=== PATIENT | male | born 1990 | race Caucasian/White ===

== ENCOUNTER 2024-09-30 06:56 | Emergency (ER) | payer OTHER, SELFPAY ==
--- NOTE | ~2024-09-30 | CT_ITS ---
EXAMINATION: CT ABDOMEN AND PELVIS WITH CONTRAST CLINICAL INFORMATION: Abdominal pain unspecified. COMPARISON: None available. TECHNIQUE: Multidetector volumetric images were obtained from the superior aspect of the liver through the pubic symphysis following administration 85 mL of Omnipaque 350 intravenous contrast. Sagittal and coronal reformatted images were obtained on the technologist's workstation. Oral contrast: No This CT examination was performed using dose optimization techniques as appropriate, variously including the following: *Automated exposure control *Adjustment of mA and/or kV according to patient size (this includes techniques or standardized protocols for targeted exams where dose is matched to indication/reason for exam; i.e. extremities or head) *Use of iterative reconstruction technique FINDINGS: LUNG BASES: Patchy groundglass opacities in the left lower lobe centrally, highly suspicious for pneumonia. No effusions. Right lung clear. Heart size normal. No pericardial effusion. No esophageal abnormalities. LIVER, GALLBLADDER, AND BILIARY TREE: There is mild hepatomegaly. There is diffuse fatty infiltration of the liver with focal fatty sparing. No suspicious intrinsic lesion. Smooth contour. No intra or extrahepatic biliary dilatation. The gallbladder is unremarkable with no evidence of radiopaque gallstones, gallbladder wall thickening, or obvious pericholecystic inflammatory changes. PANCREAS: Unremarkable. SPLEEN: Borderline splenomegaly. Small posterior splenule. ADRENAL GLANDS: Unremarkable. KIDNEYS AND URETERS: The kidneys are normal in size, shape, and attenuation. No hydronephrosis, hydroureter, or calculi seen. No perinephric stranding. There is a 1.4 cm midpole left renal cyst. BLADDER: Unremarkable. GASTROINTESTINAL TRACT: There are rare colonic diverticula. The small and large bowel are otherwise unremarkable. The appendix is unremarkable. The stomach is decompressed. The duodenum appears normal. No rectal abnormality. PERITONEUM/RETROPERITONEUM: No free air or ascites. ABDOMINAL WALL: No significant hernia is appreciated. LYMPH NODES: Nonenlarged by size criteria. VASCULAR: Unremarkable. PELVIC VISCERA: The prostate and seminal vesicles are unremarkable. OSSEOUS STRUCTURES: No suspicious lytic or blastic bone lesions. Mild degenerative changes of the hip joints with over coverage of the posterior acetabula, findings which can represent CAYETANO, pincer type. There is a bone island in the right intertrochanteric region. Mild degenerative arthrosis in the spine with short pedicle syndrome. CT/CT abdomen pelvis w IV con IMPRESSION: 1. Pneumonia left lower lobe. No effusions. 2. Mild hepatomegaly with diffuse fatty infiltration. No suspicious lesion. 3. Borderline splenic enlargement. 4. Minimal colonic diverticulosis without evidence of inflammation. 5. Additional ancillary findings as discussed in the body of the report. Electronically signed by: Cliff Taylor MD 09/30/2024 09:15 AM EDT
--- NOTE | ~2024-09-30 | US_ITS ---
EXAMINATION: US ABDOMEN LIMITED CLINICAL INFORMATION: Right upper quadrant evaluation, abdominal pain, nausea and vomiting, diarrhea.. COMPARISON: Postcontrast CT abdomen and pelvis dated earlier same day. TECHNIQUE: Real-time imaging of the right upper quadrant abdominal viscera. FINDINGS: Per technologist note, limited exam due to extensive overlying bowel gas. PANCREAS: Visualized portions are unremarkable. Tail obscured by gas. LIVER: Liver is mildly enlarged. The right hepatic lobe measures 17.3 cm. The liver contour is normal. Diffusely increased parenchymal echogenicity is present. Focal fatty sparing abutting the gallbladder fossa. No focal hepatic lesion. There is no intrahepatic biliary duct dilatation seen. GALLBLADDER: The gallbladder is physiologically distended without evidence of stones, sludge, polyps, wall thickening or pericholecystic fluid. Negative sonographic Hubbard's sign. COMMON BILE DUCT: Normal in caliber measuring 0.3 cm in diameter. RIGHT KIDNEY: No hydronephrosis. No renal calculi or focal parenchymal lesions. The kidney measures 11.9 cm in maximum dimension. FREE FLUID: None. US/US abdomen limited IMPRESSION: 1. Mild hepatomegaly with mild diffuse fatty infiltration of the liver. 2. Normal gallbladder and bile ducts. 3. Normal right kidney. Electronically signed by: Cliff Taylor MD 09/30/2024 12:07 PM EDT
--- NOTE | ~2024-09-30 | CT_ITS ---
EXAMINATION: CT CHEST ANGIOGRAPHY WITH IV CONTRAST INDICATION: diffuse pain COMPARISON: There are no prior studies available for comparison. TECHNIQUE: Helical CT scan of the chest was performed following administration of intravenous contrast (65 mL Omnipaque 350). The contrast bolus was timed to optimally opacify the pulmonary arteries. Thin sections were obtained through the pulmonary arteries. Coronal and sagittal reformatted images were generated. 3D/MIP reconstructed images are also obtained and reviewed. This CT exam was performed with one or more of the following dose reduction techniques: automated exposure control, adjustment of the mA and/or kV according to patient size, use of iterative reconstruction technique. DLP: 304 mGy-cm CHEST: THYROID: The thyroid gland is unremarkable. PULMONARY ARTERIES: No intraluminal filling defects are identified within the pulmonary arteries to suggest pulmonary emboli. LUNGS: There are multifocal patchy airspace opacities in both upper lobes, consistent with pneumonia. MEDIASTINUM: There is no mediastinal lymphadenopathy. DENNIS: There is no hilar lymphadenopathy. CARDIOVASCULATURE: The heart is normal in size. There is no pericardial effusion. The thoracic aorta is normal in caliber. DEGREE OF CORONARY CALCIFICATION: none PLEURA: There is no pleural effusion. No pneumothorax. MAIN AIRWAYS: The mainstem bronchi and proximal branches are patent. AXILLA: There is no axillary lymphadenopathy. UPPER ABDOMEN: The visualized portion of the liver is enlarged and demonstrates diffusely decreased attenuation, consistent with steatosis. The visualized portions of the spleen and adrenals are unremarkable. BONES AND SOFT TISSUES: There is mild degenerative disc disease of the spine. CT/CT angio chest PE protocol IMPRESSION: 1. No evidence of pulmonary emboli. 2. Bilateral upper lobe pneumonia. 3. Hepatomegaly and hepatic steatosis. Electronically signed by: Vinh Szymanski MD 09/30/2024 11:12 AM EDT
[2024-09-30 07:15] VITALS: BP 112/66; PULSE 113; RESP 18; TEMP 37.1; O2SAT 98; BMI 36.6
[2024-09-30 07:33] LABS: MANUAL DIFF FLAG NO
[2024-09-30 07:36] LABS: Basophils Absolute Auto 0.1 X10*3/uL (0.0-0.2); Basophils Percent Auto 0.4 % (0-2); Eosinophils Absolute Auto 0.2 X10*3/uL (0.0-0.4); Eosinophils Percent Auto 1.2 % (0-4); Hematocrit 46.6 % (42.0-52.0); Hemoglobin 16.2 g/dl (14.0-18.0); Imm Gran Abs Auto 0.06 X10*3/uL (0.00-0.03); Imm Gran Pct Auto 0.4 % (0.0-0.4); Lymphocytes Absolute Auto 1.2 X10*3/uL (1.2-4.9); Lymphocytes Percent Auto 8.3 % (20-40); Mean Corpuscular HGB Conc 34.8 g/dl (31.0-36.0); Mean Corpuscular Hemoglobin 28.1 pg (27.0-33.0); Mean Corpuscular Volume 80.8 fL (80.0-98.0); Mean Platelet Volume 9.8 fL (9.4-12.4); Monocytes Absolute Auto 0.9 X10*3/uL (0.1-1.2); Monocytes Percent Auto 6.3 % (2-11); Neutrophils Absolute Auto 12.3 x10*3/uL (2.0-8.3); Neutrophils Percent Auto 83.4 % (45-73); Platelet Count 229 X10*3/uL (160-400); Red Blood Count 5.77 X10*6/uL (4.60-5.80); Red Cell Distribution Width 12.4 % (11.0-16.0); White Blood Count 14.7 X10*3/uL (4.8-10.8)
--- NOTE | 2024-09-30 07:41 | ED.GENADULT ---
HPI - General Adult General Chief complaint: Abdominal Pain Stated complaint: n/v/d Time Seen by Provider: 09/30/24 07:16 History of Present Illness ED Provider: Dr. Donnelly HPI narrative: 34 y/o M patient; without significant PMH; presents from home reporting NBNB nausea/vomiting and non-bloody diarrhea since this morning. Associated with chills. The patient was initially going to try to go to work this morning but decided to present to the hospital for further evaluation due to the severity of his symptoms. He otherwise denies: fever or chills, SOB, cough/congestion, chest pain, syncope. He denies prior abdominal surgeries. Related Data Previous Rx's ?Medication ?Instructions ?Recorded amoxicillin 875 mg-potassium 1 tab PO BID 7 days #14 tabs 09/30/24 clavulanate 125 mg tablet azithromycin 250 mg tablet 250 mg PO DAILY 4 days #4 tabs 09/30/24 ondansetron HCl 4 mg tablet 4 mg PO Q8H PRN nausea and 09/30/24 vomiting #30 tabs Allergies Allergy/AdvReac Type Severity Reaction Status Date / Time seafood Allergy Intermediate Swelling Verified 09/30/24 07:20 Review of Systems Review of Systems: Yes all other systems are reviewed and are negative [facility] Past Medical History Attestation statement: The following information was validated with the patient. Source: unable to obtain Social History Social History Smoked in Last 30 Days: No Use of substances other than those prescribed or required for medical reasons: No Advance Directives: No Advance Directives Information Provided: No Do you have a plan to hurt others: No Plan Physical Exam ED Vital Signs: Vital Signs - 24 hr 09/30/24 07:15 Temperature 98.7 F Pulse Rate 113 H Respiratory Rate 18 Blood Pressure 112/66 Pulse Oximetry 98 Oxygen Delivery Method Room Air BMI result Body Mass Index 36.6 Patient is afebrile, tachycardic, hemodynamically stable Const General: cooperative HENMT Head: Yes normal to inspection and Yes atraumatic Eyes General: appearance normal, both eyes and all related structures Pupils: Equal, round and reactive pupils present EOM: EOMs intact bilaterally Neck Neck: Yes normal visual inspection, Yes full ROM, Yes supple and No tender Chest Chest palpation & inspection: normal inspection of the chest and normal palpation of entire chest wall Resp Effort & Inspection: normal respiratory effort, able to speak in complete sentences, no cough and no respiratory distress Auscultation: clear to auscultation bilaterally Cardio Rate: regular rate Rhythm: regular rhythm Peripheral pulses: Peripheral pulses 2+ throughout GI Inspection: Yes normal to inspection, No Abdominal wall edema and No distended Palpation (GI): Soft to palpation, not firm, nontender, no guarding and not rigid Auscultation: normal bowel sounds Back/Spine/Pelvis Back: No back tenderness Neuro Cranial nerves: Yes Equal, round and reactive pupils present Course Course Course Narrative: Patient is afebrile, tachycardic, hemodynamically stable. Ordered for respiratory swab and abdominal laboratory studies. Reevaluation(s) Reevaluation #1: Labs reviewed. Mild leukocytosis 14.7. Unremarkable BMP for acute pathology. Total bilirubin 2.2. Mild transaminitis. No prior laboratory studies for comparison. Provided Tylenol PO but patient declined. Ordered for CT Abdomen/Pelvis. Notable for LLL pneumonia. Ordered for CTA Chest. Offer toradol IV 15mg and Zofran 4mg IV. CTA consistent with patchy upper lobe pneumonia. Ordered for blood cultures and lactic acid. Started on Azithromycin and Augmentin. US notable only for hepatic steatosis. Patient is ambulating without difficulty or hypoxia. Plan: Discharge to home with PCP follow up Return precautions given Rx Azithromycin, augmentin, zofran sent to pharmacy Medications Administered Discontinued Medications Generic Name Dose Route Start Last Admin Trade Name Freq PRN Reason Stop Dose Admin Acetaminophen 975 mg 09/30/24 07:51 09/30/24 08:06 Acetaminophen 325 Mg Tablet PO 09/30/24 07:52 Not Given ONCE ONE Amoxicillin/Clavulanate Potassium 875 mg 09/30/24 11:48 09/30/24 11:53 Amoxicillin/Potassium Clav 875 Mg Tablet PO 09/30/24 11:49 875 mg ONCE ONE Administration Azithromycin 500 mg 09/30/24 11:48 09/30/24 11:52 Azithromycin 500 Mg Tablet PO 09/30/24 11:49 500 mg ONCE ONE Administration Sodium Chloride 1,000 mls @ 999 mls/hr 09/30/24 09:45 09/30/24 10:46 Ns IV 09/30/24 10:45 Infused .Q1H1M NANCY Infusion Iohexol 100 ml 09/30/24 08:55 09/30/24 08:56 Iohexol 350 Mg/Ml 100 Ml Infus..Btl IV 09/30/24 08:56 85 ml ONCE ONE Administration Iohexol 100 ml 09/30/24 10:49 09/30/24 10:50 Iohexol 350 Mg/Ml 100 Ml Infus..Btl IV 09/30/24 10:50 65 ml ONCE ONE Administration Ketorolac Tromethamine 15 mg 09/30/24 09:37 09/30/24 09:41 Ketorolac Tromethamine 15 Mg/Ml Vial IVPUSH 09/30/24 09:38 15 mg ONCE ONE Administration Ondansetron HCl 4 mg 09/30/24 09:38 09/30/24 09:41 Ondansetron Hcl 4 Mg/2 Ml Vial IVPUSH 09/30/24 09:39 4 mg ONCE ONE Administration Medical Decision Making Lab Data 09/30/24 07:27 09/30/24 07:27 Labs: Lab Results 09/30/24 09/30/24 Range/Units 07:27 12:11 WBC 14.7 H (4.8-10.8) X10*3/uL RBC 5.77 (4.60-5.80) X10*6/uL Hgb 16.2 (14.0-18.0) g/dl Hct 46.6 (42.0-52.0) % MCV 80.8 (80.0-98.0) fL MCH 28.1 (27.0-33.0) pg MCHC 34.8 (31.0-36.0) g/dl RDW 12.4 (11.0-16.0) % Plt Count 229 (160-400) X10*3/uL MPV 9.8 (9.4-12.4) fL Immature Gran % (Auto) 0.4 (0.0-0.4) % Neut % (Auto) 83.4 H (45-73) % Lymph % (Auto) 8.3 L (20-40) % Fillmore % (Auto) 6.3 (2-11) % Eos % (Auto) 1.2 (0-4) % Baso % (Auto) 0.4 (0-2) % Lymph # (Auto) 1.2 (1.2-4.9) X10*3/uL [place] # (Auto) 0.9 (0.1-1.2) X10*3/uL Eos # (Auto) 0.2 (0.0-0.4) X10*3/uL Baso # (Auto) 0.1 (0.0-0.2) X10*3/uL Abs Immat Gran (auto) 0.06 H (0.00-0.03) X10*3/uL Absolute Neuts (auto) 12.3 H (2.0-8.3) x10*3/uL Absolute Nucleated RBC 0.000 (0.0-0.012) X10*3/uL Nucleated RBC % (auto) 0.0 (0.0-0.2) /100WBC Sodium 140 (135-145) mmol/L Potassium 3.8 (3.3-5.1) mmol/L Chloride 105 (96-108) mmol/L Carbon Dioxide 28 (22-29) mmol/L Anion Gap 11 L (12-20) BUN 12 (9-16) mg/dL Creatinine 1.02 (0.5-1.4) mg/dL Estim Creat Clear Calc 108.7 Estimated GFR > 60 Random Glucose 151 H (60-115) mg/dL Lactic Acid 1.1 (0.5-2.0) mmol/L Calcium 9.7 (8.4-10.2) mg/dL Total Bilirubin 2.2 H (0.0-1.0) mg/dL Direct Bilirubin 0.6 H (0.0-0.5) mg/dL AST 72 H (5-37) U/L ALT 139 H (0-40) U/L Alkaline Phosphatase 118 H (39-117) U/L Total Protein 8.4 H (6.5-8.0) g/dL Albumin 4.5 (3.5-5.0) g/dL Lipase 13 (8-78) U/L Ethyl Alcohol < 10 mg/dL Influenza Type A (PCR) NEGATIVE (Negative) Influenza Type B (PCR) NEGATIVE (Negative) RSV RNA Qual (PCR) NEGATIVE (Negative) SARS-CoV-2 RNA (RT-PCR) NEGATIVE (Negative) Independent Interpretation I performed an independent interpretation of an: EKG Interpretation: NSR 93BPM with normal intervals, without ischemic changes Radiology Impression Discussion of test interpretation with radiology: I have reviewed the radiologist's reading. Radiologist Impression: EXAMINATION: CT ABDOMEN AND PELVIS WITH CONTRAST CLINICAL INFORMATION: Abdominal pain unspecified. COMPARISON: None available. TECHNIQUE: Multidetector volumetric images were obtained from the superior aspect of the liver through the pubic symphysis following administration 85 mL of Omnipaque 350 intravenous contrast. Sagittal and coronal reformatted images were obtained on the technologist's workstation. Oral contrast: No This CT examination was performed using dose optimization techniques as appropriate, variously including the following: *Automated exposure control *Adjustment of mA and/or kV according to patient size (this includes techniques or standardized protocols for targeted exams where dose is matched to indication/reason for exam; i.e. extremities or head) *Use of iterative reconstruction technique FINDINGS: LUNG BASES: Patchy groundglass opacities in the left lower lobe centrally, highly suspicious for pneumonia. No effusions. Right lung clear. Heart size normal. No pericardial effusion. No esophageal abnormalities. LIVER, GALLBLADDER, AND BILIARY TREE: There is mild hepatomegaly. There is diffuse fatty infiltration of the liver with focal fatty sparing. No suspicious intrinsic lesion. Smooth contour. No intra or extrahepatic biliary dilatation. The gallbladder is unremarkable with no evidence of radiopaque gallstones, gallbladder wall thickening, or obvious pericholecystic inflammatory changes. PANCREAS: Unremarkable. SPLEEN: Borderline splenomegaly. Small posterior splenule. ADRENAL GLANDS: Unremarkable. KIDNEYS AND URETERS: The kidneys are normal in size, shape, and attenuation. No hydronephrosis, hydroureter, or calculi seen. No perinephric stranding. There is a 1.4 cm midpole left renal cyst. BLADDER: Unremarkable. GASTROINTESTINAL TRACT: There are rare colonic diverticula. The small and large bowel are otherwise unremarkable. The appendix is unremarkable. The stomach is decompressed. The duodenum appears normal. No rectal abnormality. PERITONEUM/RETROPERITONEUM: No free air or ascites. ABDOMINAL WALL: No significant hernia is appreciated. LYMPH NODES: Nonenlarged by size criteria. VASCULAR: Unremarkable. PELVIC VISCERA: The prostate and seminal vesicles are unremarkable. OSSEOUS STRUCTURES: No suspicious lytic or blastic bone lesions. Mild degenerative changes of the hip joints with over coverage of the posterior acetabula, findings which can represent CAYETANO, pincer type. There is a bone island in the right intertrochanteric region. Mild degenerative arthrosis in the spine with short pedicle syndrome. CT/CT abdomen pelvis w IV con IMPRESSION: 1. Pneumonia left lower lobe. No effusions. 2. Mild hepatomegaly with diffuse fatty infiltration. No suspicious lesion. 3. Borderline splenic enlargement. 4. Minimal colonic diverticulosis without evidence of inflammation. 5. Additional ancillary findings as discussed in the body of the report. Electronically signed by: Cliff Taylor MD 09/30/2024 09:15 AM EDT RP EXAMINATION: CT CHEST ANGIOGRAPHY WITH IV CONTRAST INDICATION: diffuse pain COMPARISON: There are no prior studies available for comparison. TECHNIQUE: Helical CT scan of the chest was performed following administration of intravenous contrast (65 mL Omnipaque 350). The contrast bolus was timed to optimally opacify the pulmonary arteries. Thin sections were obtained through the pulmonary arteries. Coronal and sagittal reformatted images were generated. 3D/MIP reconstructed images are also obtained and reviewed. This CT exam was performed with one or more of the following dose reduction techniques: automated exposure control, adjustment of the mA and/or kV according to patient size, use of iterative reconstruction technique. DLP: 304 mGy-cm CHEST: THYROID: The thyroid gland is unremarkable. PULMONARY ARTERIES: No intraluminal filling defects are identified within the pulmonary arteries to suggest pulmonary emboli. LUNGS: There are multifocal patchy airspace opacities in both upper lobes, consistent with pneumonia. MEDIASTINUM: There is no mediastinal lymphadenopathy. DENNIS: There is no hilar lymphadenopathy. CARDIOVASCULATURE: The heart is normal in size. There is no pericardial effusion. The thoracic aorta is normal in caliber. DEGREE OF CORONARY CALCIFICATION: none PLEURA: There is no pleural effusion. No pneumothorax. MAIN AIRWAYS: The mainstem bronchi and proximal branches are patent. AXILLA: There is no axillary lymphadenopathy. UPPER ABDOMEN: The visualized portion of the liver is enlarged and demonstrates diffusely decreased attenuation, consistent with steatosis. The visualized portions of the spleen and adrenals are unremarkable. BONES AND SOFT TISSUES: There is mild degenerative disc disease of the spine. CT/CT angio chest PE protocol IMPRESSION: 1. No evidence of pulmonary emboli. 2. Bilateral upper lobe pneumonia. 3. Hepatomegaly and hepatic steatosis. Electronically signed by: Vinh Szymanski MD 09/30/2024 11:12 AM EDT EXAMINATION: US ABDOMEN LIMITED CLINICAL INFORMATION: Right upper quadrant evaluation, abdominal pain, nausea and vomiting, diarrhea.. COMPARISON: Postcontrast CT abdomen and pelvis dated earlier same day. TECHNIQUE: Real-time imaging of the right upper quadrant abdominal viscera. FINDINGS: Per technologist note, limited exam due to extensive overlying bowel gas. PANCREAS: Visualized portions are unremarkable. Tail obscured by gas. LIVER: Liver is mildly enlarged. The right hepatic lobe measures 17.3 cm. The liver contour is normal. Diffusely increased parenchymal echogenicity is present. Focal fatty sparing abutting the gallbladder fossa. No focal hepatic lesion. There is no intrahepatic biliary duct dilatation seen. GALLBLADDER: The gallbladder is physiologically distended without evidence of stones, sludge, polyps, wall thickening or pericholecystic fluid. Negative sonographic Hubbard's sign. COMMON BILE DUCT: Normal in caliber measuring 0.3 cm in diameter. RIGHT KIDNEY: No hydronephrosis. No renal calculi or focal parenchymal lesions. The kidney measures 11.9 cm in maximum dimension. FREE FLUID: None. US/US abdomen limited IMPRESSION: 1. Mild hepatomegaly with mild diffuse fatty infiltration of the liver. 2. Normal gallbladder and bile ducts. 3. Normal right kidney. Electronically signed by: Cliff Taylor MD 09/30/2024 12:07 PM EDT Discharge Plan Discharge Clinical Impression: Pneumonia Patient Disposition: Home, Self-Care Instructions: Community Acquired Pneumonia (DC) Additional Instructions: You were seen in the emergency department today and diagnosed with pneumonia. You should take the Augmentin (Amoxicillin-Clavulonic Acid medication) tonight and then twice a day for the next 7 days. You should take the Azithromycin once a day starting tomorrow for 4 days. I have also sent a nausea medication called Zofran to the pharmacy which you can take every 8 hours as needed for nausea/vomiting. Please follow up with your primary doctor for re-evaluation within the next 1 - 2 days. Return to the emergency department for: Difficulty breathing Chest pain Passing out Prescriptions: New amoxicillin-pot clavulanate 875-125 mg tablet 1 tab PO BID 7 Days Qty: 14 0RF ondansetron HCl 4 mg tablet 4 mg PO Q8H PRN (Reason: nausea and vomiting) Qty: 30 0RF azithromycin 250 mg tablet 250 mg PO DAILY 4 Days Qty: 4 0RF Rx Instructions: start on day 2 of therapy Print Language: Italian
[2024-09-30 07:48] LABS: Anion Gap 11 (12-20); Blood Urea Nitrogen 12 mg/dL (9-16); Calcium 9.7 mg/dL (8.4-10.2); Carbon Dioxide 28 mmol/L (22-29); Chloride 105 mmol/L (96-108); Creatinine Clr Calc Pharmacy 108.7; Estimated Glomerular Filt Rate > 60; Glucose Random 151 mg/dL (60-115); Potassium 3.8 mmol/L (3.3-5.1); Sodium 140 mmol/L (135-145)
--- OUTSIDE RECORDS SUMMARY | 2024-09-30 07:48 | XMS_ITS | Clinical Summary ---
Author Organization [facility] it Address [address] [place] [address] Care Team Providers Care Detasseler Name Role Phone Unavailable Primary Care Provider Unavailabl e Social History Tobacco Use Types Packs/Day Years Used Date Smoking Tobacco: Never Assessed Sex and Gender Information Value Date Recorded Sex Assigned at Not on file Legal Sex Male 4:36 AM EST Gender Identity Not on file Sexual Orientation Not on file Plan of Treatment Health Maintenance Due Date Last Done Comments DTaP,Tdap,and Td Vaccines (1 - Tdap) 2007 Hepatitis B Vaccines (1 of 3 - 19+ 3-dose series) 2007 Cholesterol Screening (Lipid Panel) 02/10/2024 Depression Screening 02/10/2024 HIV Screening 02/10/2024 Hepatitis C Screening 02/10/2024 Social Influencers of Health Screening 02/10/2024 COVID-19 Vaccine ( - 2023-2 5 season) 2024 Influenza Vaccine (#1) 2024 HIB Vaccines Aged Out No longer eligi ble based on patient's age to complete this topic HPV Vaccines Aged Out No longer eligi ble based on patient's age to complete this topic Hepatitis A Vaccines Aged Out No long er eligible based on patient's age to complete this topic IPV Vaccines Aged Out No longer eligi ble based on patient's age to complete this topic MMR Vaccines Aged Out No longer eligi ble based on patient's age to complete this topic Meningococcal ACWY Vaccine Aged Out N o longer eligible based on patient's age to complete this topic Meningococcal B Vacine Aged Out No lo nger eligible based on patient's age to complete this topic Pneumococcal Vaccine: Pediat rics (0 to 5 Years) and At-Risk Patients (6 to 64 Years) Aged Out No longer eligible b ased on patient's age to complete this topic RSV Immunization Patients Un nisha 20 months Aged Out No longer eligible b ased on patient's age to complete this topic Varicella Vaccines Aged Out No longer eligible based on patient's age to complete this topic Advance Directives Documents on File Type Date 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
--- NOTE | 2024-09-30 08:06 | PC.NURSE ---
Patient a&ox3,iv inserted, labs drawn, nasal swab obtained, vss, pt c/o 04/29 abd pain, pt was offered tylenol per orders pt refused/crying stating his pain is too much for tylenol. will notify provider.
[2024-09-30 08:13] LABS: Influenza A PCR NEGATIVE (Negative); Influenza B PCR NEGATIVE (Negative); Resp Syncy Virus RNA Qual PCR NEGATIVE (Negative); SARS COV2 PCR INHOUSE NEGATIVE (Negative)
[2024-09-30 08:43] LABS: Alanine Aminotransferase 139 U/L (0-40); Albumin Level 4.5 g/dL (3.5-5.0); Alkaline Phosphatase 118 U/L (39-117); Aspartate Amino Transferase 72 U/L (5-37); Bilirubin Direct 0.6 mg/dL (0.0-0.5); Bilirubin Total 2.2 mg/dL (0.0-1.0); Ethanol < 10 mg/dL; Lipase 13 U/L (8-78); Total Protein 8.4 g/dL (6.5-8.0)
[2024-09-30] MEDS: iohexoL 350 MG/ML 100 ML INFUS..BTL IV ×2 (08:56→10:50)
[2024-09-30] MEDS: Ketorolac Tromethamine 15 MG/ML VIAL IVPUSH (09:41)
[2024-09-30] MEDS: ondansetron HCL 4 MG/2 ML VIAL IVPUSH (09:41)
[2024-09-30] MEDS: 0.9 % Sodium Chloride 1,000 ML 999 ML IV (09:45)
[2024-09-30] MEDS: Azithromycin 500 MG TABLET PO (11:52)
[2024-09-30] MEDS: Amoxicillin/Potassium Clav 875 MG TABLET PO (11:53)
--- NOTE | 2024-09-30 11:53 | PC.NURSE ---
pt medicated with po abx, tech to draw additional labs
--- NOTE | 2024-09-30 12:13 | ECG_ITS ---
Test Reason : SCREENING Blood Pressure : */* mmHG Vent. Rate : 93 BPM Atrial Rate : 93 BPM P-R Int : 136 ms QRS Dur : 78 ms QT Int : 334 ms P-R-T Axes : 36 24 3 degrees QTcB Int : 415 ms Normal sinus rhythm Normal ECG No previous ECGs available Referred By: Stacy Donnelly Electronically Signed By: KRISTIAN URIAS
[2024-09-30 12:32] LABS: Lactic Acid 1.1 mmol/L (0.5-2.0)
[2024-09-30 13:03] VITALS: RESP 14
[2024-09-30 13:15] VITALS: BP 116/68; PULSE 108; RESP 16; TEMP 36.7; O2SAT 98
== END 2024-09-30 13:16 | disposition home or self-care (01) ==
PROVIDERS: Emergency Provider Emergency Medicine
DX: J18.9 Pneumonia, unspecified organism (principal); R11.2 Nausea with vomiting, unspecified; R00.0 Tachycardia, unspecified; R10.11 Right upper quadrant pain; Z03.818 Encounter for observation for suspected exposure to other biological agents ruled out; Z79.899 Other long term (current) drug therapy
CPT/HCPCS: 0241U; 36415; 71275; 74177; 76705; 80048; 80076; 80307; 83605; 83690; 85025; 87040; 93005; 96361; 96374; 96375; 99285; J1885; J2405; Q9967

== ENCOUNTER → 2024-09-30 08:16 | Outpatient (BNV) | payer OTHER, SELFPAY | PROVIDERS: Emergency Provider Emergency Medicine; Visit Provider Radiology Diagnostic Radiology | DX: R10.9 Unspecified abdominal pain (principal); J18.9 Pneumonia, unspecified organism; R11.2 Nausea with vomiting, unspecified; R19.7 Diarrhea, unspecified | CPT/HCPCS: 71275; 74177; 76705 ==

== ENCOUNTER → 2024-09-30 12:13 | Outpatient (BNV) | payer OTHER, SELFPAY | PROVIDERS: Emergency Provider Emergency Medicine; Visit Provider Internal Medicine | DX: Z13.6 Encounter for screening for cardiovascular disorders (principal) | CPT/HCPCS: 93010 ==